=== PATIENT | male | born 1985 | race Caucasian/White ===

== ENCOUNTER 2016-10-22 03:39 | Observation (INO) | payer OTHER ==
[~2016-10-22] VITALS: Ht 175.3 cm; Wt 118.8 kg
--- NOTE | ~2016-10-22 | EKG ---
[address] [address] ELECTROCARDIOGRAM REPORT Name: CARROLL HAYES Room #: 211-[facility]..#: [id number] Admission: 10/22/16 Attend Phys: Alex Taylor MD Discharge: Date of : 83 Report #: [id number] THIS REPORT FOR: //name// [facility] Test Date: 2016-10-22 Test Time: 07:46:37 Pat Name: CARROLL HAYES Department: Room: 211 P Gender: M Ambulatory Services Representative: [email or web address] : 1985 Requested By: Jessy Song Order Number: [id number] MD: Aren Rose Measurements Intervals [place] Rate: 69 P: 69 RI: 146 QRS: 39 QRSD: 109 T: 29 QT: 392 QTc: 420 Interpretive Statements Sinus arrhythmia No significant abnormality No previous ECG available for comparison Electronically Signed On 10-22-2016 14:36:05 [employer] by Aren Rose [email or web address] <ELECTRONICALLY SIGNED> By: Aren Rose MD, [facility] 10/22/16 1436 0746 07 Aren Rose MD, FACC /EPI
--- NOTE | ~2016-10-22 | HC ---
Formerly [facility] [place] [address] CONSULTATION Name: CARROLL HAYES Room #: 211-[facility] Rosie Denise#: [id number] Admission: 10/22/16 Attend Phys: Alex Taylor MD Discharge: 10/22/16 Date of : 83 Report #: [id number] THIS REPORT FOR: //name// CC: FAM unknown Alex Taylor MD DICTATED BY: Kay DUMONT HISTORY OF PRESENT ILLNESS: This very pleasant 31-year-old gentleman, who was admitted for secondary to complaints of chest discomfort. He was initially evaluated at [facility] Emergency Department and transferred to our facility for further evaluation. He had an episode of chest discomfort which awoke him from sleep last evening. He sat up, walked into the restroom, and his symptoms spontaneously resolved. He does admit he had a late spicy dinner consisting of burritos. Prior to this event, he has had no exertional component of chest discomfort and specifically denies unusual dyspnea on exertion and decreased exercise capacity. REVIEW OF SYSTEMS: CONSITUTIONAL: Denies fever, chills, or recent viral type syndrome. PULMONARY: Denies unusual dyspnea on exertion, decreased exercise capacity, PND, orthopnea, nor cough productive of sputum. CARDIAC: Chest discomfort with lying flat, resolved with activity. No exertional component. Denies unusual dyspnea on exertion or decreased exercise capacity. Denies palpitations or syncopal events. With his episode of chest discomfort last evening, he had no associated symptoms of nausea, vomiting, or diaphoresis. GASTROINTESTINAL: Admits to a history of reflux symptoms, has been off of medications for the past year. GENITOURINARY: Denies dysuria, hesitancy, or frequency. EXTREMITIES: Denies numbness, tingling, unilateral weakness, or peripheral edema. Otherwise, a 12-point review of systems is negative. PAST MEDICAL HISTORY: Obtained through chart review, as well as discussion with the patient. No prior surgical history. No documented hypertension or dyslipidemia. FAMILY HISTORY: Both parents alive in their 50s, neither with premature coronary artery disease documented. SOCIAL HISTORY: He is single, has a tobacco history; however, quit over a year ago. Denies any alcohol abuse. Has a history of illicit drug use; however, quit more than 3 years ago. Denies any recent relapse. HOME MEDICATIONS: Suboxone 8 mg twice daily. [address] [address] CONSULTATION Name: CARROLL HAYES Room #: 211-[facility] Rosie Denise#: [id number] Admission: 10/22/16 Attend Phys: Alex Taylor MD Discharge: 10/22/16 Date of : 83 Report #: [id number] ALLERGIES: No known drug allergies. PHYSICAL EXAMINATION: GENERAL: Alert and oriented. A 31-year-old gentleman. No acute distress. SKIN: [place], warm, and dry. HEENT: Mucous membranes are pink. NECK: Preserved upstrokes. No jugular venous distention present. No carotid bruits were noted. Supple. No thyroid enlargement on palpation. LUNGS: Sounds are clear without rhonchi nor wheeze. CARDIOVASCULAR: S1 and S2. With a regular rate and rhythm. No rub or gallop present. ABDOMEN: Soft and nontender. Bowel sounds are active. No bruits. No organomegaly. EXTREMITIES: Warm. Pedal pulses palpable. No peripheral edema present. NEUROLOGICAL: Adequate motor strength and gait. ECG, sinus rhythm without ischemic changes. LABORATORY DATA: From [facility], hemoglobin 14.1, hematocrit 40.4, white count 9.6, platelet count 321. Sodium 139, potassium 3.4, BUN 13, creatinine 0.68, glucose 89. Troponins were negative. IMPRESSION: 1. Atypical chest pain. 2. Suspect gastroesophageal reflux disease. RECOMMENDATIONS AND PLAN: The patient will start omeprazole 20 mg daily. Avoid spicy meals prior to bedtime. He may resume his usual activities. He is generally resides in the [facility]. If he has any recurrence, he is recommended for a stress study to rule out myocardial ischemia. Otherwise, continued heart healthy lifestyle was reviewed. If he has any questions or concerns, he will notify the office with any questions. Thank you for allowing us to participate in the care of this pleasant gentleman. <ELECTRONICALLY SIGNED> By: David Castellon MD, FACC 10/25/16 0936 [id number] David Castellon MD, FAC /nt
[2016-10-22 06:18] VITALS: BP 140/92
[2016-10-22 07:15] VITALS: BP 140/92
[2016-10-22] MEDS ORDERED: SUBOXONE 8 MG-1 EAC3 SL (07:16)
[2016-10-22 11:22] LABS: ABSOLUTE NEUTROPHILS 7.4 thou/uL (1.4-8.2); BASOPHILS 0.6 % (0.0-2.0); EOSINOPHILS 0.8 % (0.0-3.0); HEMATOCRIT 44.6 % (42.0-52.0); LYMPHOCYTES 20.5 % (24.0-44.0); MCH 28.4 pg (26.0-34.0); MCHC 33.7 % (28.0-37.0); MCV 84.2 fL (80.0-100.0); MONOCYTES 7.2 % (1.0-8.0); PLATELET COUNT 330 thou/uL (150-400); POLYS 70.9 % (36.0-66.0); RBC 5.29 mil/uL (4.50-6.00); RDW 13.4 % (10.5-14.5); WBC 10.4 thou/uL (4.0-11.0)
[2016-10-22 11:23] LABS: MANUAL DIFF NO
[2016-10-22 11:32] LABS: CALCIUM 9.3 mg/dL (8.5-10.1); CREATININE 0.8 mg/dL (0.6-1.3); POTASSIUM 4.3 mmol/L (3.5-5.1)
[2016-10-22 11:38] LABS: CHOLESTEROL 178 mg/dL (<200); HDL CHOLESTEROL 62 mg/dL (>40); LDL CHOLESTEROL 109 mg/dL (<100); TC:HDL 2.9 Ratio (Not establshd); TRIGLYCERIDE 37 mg/dL (<150); VLDL 7 mg/dL (<40)
[2016-10-22 11:39] LABS: ALBUMIN 4.6 g/dL (3.4-5.0); CALCIUM 9.7 mg/dL (8.5-10.1); CREATININE 0.8 mg/dL (0.6-1.3); POTASSIUM 4.5 mmol/L (3.5-5.1); TOTAL BILIRUBIN 0.7 mg/dL (<0.1-1.0); TOTAL PROTEIN 8.6 g/dL (6.4-8.2)
[2016-10-22 12:39] VITALS: BP 140/92
== END 2016-10-22 14:45 | disposition home or self-care (01) ==
LOC: 2N 03:39
PROVIDERS: Hospitalist; Nurse Practitioner
DX: R07.89 Other chest pain (principal); I49.9 Cardiac arrhythmia, unspecified; F19.21 Other psychoactive substance dependence, in remission; Z79.899 Other long term (current) drug therapy